=== PATIENT | male | born 1990 | race Caucasian/White ===

== ENCOUNTER 2019-04-17 13:21 | Emergency (ER) | payer MEDICAID, OTHER ==
[~2019-04-17] VITALS: Ht 175.3 cm; Wt 81.6 kg
[2019-04-17 14:07] VITALS: BP 151/94
== END 2019-04-17 16:56 | disposition home or self-care (01) ==
LOC: ER 13:29
DX: J02.9 Acute pharyngitis, unspecified (principal); M54.2 Cervicalgia
CPT/HCPCS: 70360; 70490